=== PATIENT | female | born 1965 | race Caucasian/White ===

== ENCOUNTER 2018-08-09 19:11 | Emergency (ER) | payer BC ==
[2018-08-09] MEDS ORDERED: LIDOCAINE 1% 20 ML MDV ONE (20:37)
--- NOTE | 2018-08-09 20:54 | ER ---
Nurse's Notes [facility] Name: Cindi Welsh Age: 53 yrs Sex: Female : 1965 Arrival Date: 08/09/2018 Time: 19:15 Bed 23 Private MD: Diagnosis: Laceration without foreign body, right lower leg Presentation: 08/09 19:18 Presenting complaint: Patient states: "I was chopping onions and I dropped the knife aj1 and it fell and cut my leg" Laceration noted to right knee that is superficial, not bleeding at this time. Transition of care: patient was not received from another setting of care. Complicating Factors: There are no complicating factors for this patient. Onset of symptoms was August 09, 2018 at 18:30. Risk Assessment: Do you want to hurt yourself or someone else? Patient reports no desire to harm self or others. Initial Sepsis Screen: Does the patient meet any 2 criteria? Yes Does the patient have a suspected source of infection? No. Patient's initial sepsis screen is negative. Care prior to arrival: None. 19:18 Method Of Arrival: Wheelchair aj1 19:18 Acuity: GUILLERMO 4 aj1 Triage Assessment: 19:19 General: Appears in no apparent distress. comfortable, Behavior is calm, cooperative, aj1 appropriate for age. Pain: Complains of pain in right knee Pain currently is 4 out of 10 on a pain scale. Neuro: Level of Consciousness is awake, alert, obeys commands. Cardiovascular: Patient's skin is warm and dry. Respiratory: Airway is patent Respiratory effort is even, unlabored, Respiratory pattern is. Injury Description: Laceration sustained to right knee is superficial, not bleeding. 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 - Social history:: Smoking status: Patient/guardian denies using tobacco. - Ebola Screening: : Patient denies travel to an Ebola-affected area in the 21 days before illness onset. Screenin:06 Abuse screen: Denies threats or abuse. Denies injuries from another. Nutritional aj screening: No deficits noted. Tuberculosis screening: No symptoms or risk factors identified. Fall Risk None identified. Assessment: 21:06 General: Appears in no apparent distress. comfortable, Behavior is calm, cooperative, aj appropriate for age. Pain: Complains of pain in right leg. Neuro: Level of Consciousness is awake, alert, obeys commands, Oriented to person, place, time, situation. Respiratory: Airway is patent Respiratory effort is even, unlabored, Respiratory pattern is regular, symmetrical. Derm: Skin is intact, is healthy with good turgor, Skin is pink, warm \\T\\ dry. normal. Musculoskeletal: Reports. Injury Description: Laceration sustained to right knee is 0.5 to 2.5 cm long, not bleeding, was sustained 30-60 minutes ago. Vital Signs: 19:19 BP 134 / 68; Pulse 98; Resp 18; Temp 97.0; Pulse Ox 100% on R/A; Weight 63.5 kg (R); aj1 Height 5 ft. 3 in. (160.02 cm) (R); 19:19 Body Mass Index 24.80 (63.50 kg, 160.02 cm) aj1 ED Course: 19:15 Patient arrived in ED. es 19:18 Triage completed. aj1 19:19 Arm band placed on Patient placed in waiting room, Patient notified of wait time. aj1 20:06 Bishnu Weinberg PA is PHCP. jr8 20:06 Kishor Nazario MD is Attending Physician. jr8 20:10 Merlnie Toure, RN is Primary Nurse. aj 21:06 Patient has correct armband on for positive identification. aj 21:06 Assist provider with laceration repair on right knee that was 2.5 cm. or less using aj sutures. Set up tray. Performed by Merline Toure RN Dressed with band aid, Patient tolerated well. Patient did not have IV access during this emergency room visit. Administered Medications: 20:57 Drug: Tetanus-Diphtheria Toxoid Adult 0.5 ml {Mixing Pan Tender: [employer]. Exp: aj 04/19/2020. Lot #: [id number]. } Route: IM; Site: right deltoid; 21:19 Follow up: Response: No adverse reaction aj Outcome: 20:53 Discharge ordered by . jr8 21:18 Discharged to home ambulatory. aj 21:18 Condition: good 21:18 Discharge instructions given to patient, family, Instructed on discharge instructions, follow up and referral plans. Demonstrated understanding of instructions, follow-up care, medications. 21:19 Patient left the ED. aj Signatures: Mel Salomon RN RN aj1 Merline Toure RN RN aj Grupo, Bishnu Garcia PA PA jr8
--- NOTE | 2018-08-09 20:54 | EDPHYS ---
Physician Documentation [facility] Name: Cindi Welsh Age: 53 yrs Sex: Female : 1965 Arrival Date: 08/09/2018 Time: 19:15 Bed 23 Private MD: ED Physician Kishor Nazario HPI: 08/09 20:51 This 53 yrs old Female presents to ER via Wheelchair with complaints of jr8 Laceration To Leg. 20:51 The patient has a laceration related to: cooking, from a knife, occurred at home, and jr8 there are no complicating factors. The injury was accidental. The laceration(s) is(are) located on the right leg. Onset: The symptoms/episode began/occurred acutely, today. Associated signs and symptoms: The patient has no apparent associated signs or symptoms. The patient has not experienced similar symptoms in the past. The patient has not recently seen a physician. 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 - Social history:: Smoking status: Patient/guardian denies using tobacco. - Ebola Screening: : Patient denies travel to an Ebola-affected area in the 21 days before illness onset. ROS: 20:51 Constitutional: Negative for fever, chills, and weight loss. jr8 20:51 MS/extremity: Positive for laceration, of the right leg. 20:51 All other systems are negative. Exam: 20:51 Eyes: Pupils equal round and reactive to light, extra-ocular motions intact. Lids and jr8 lashes normal. Conjunctiva and sclera are non-icteric and not injected. Cornea within normal limits. Periorbital areas with no swelling, redness, or edema. ENT: Nares patent. No nasal discharge, no septal abnormalities noted. Tympanic membranes are normal and external auditory canals are clear. Oropharynx with no redness, swelling, or masses, exudates, or evidence of obstruction, uvula midline. Mucous membranes moist. Neck: Trachea midline, no thyromegaly or masses palpated, and no cervical lymphadenopathy. Supple, full range of motion without nuchal rigidity, or vertebral point tenderness. No Meningismus. Cardiovascular: Regular rate and rhythm with a normal S1 and S2. No gallops, murmurs, or rubs. Normal PMI, no JVD. No pulse deficits. Respiratory: Lungs have equal breath sounds bilaterally, clear to auscultation and percussion. No rales, rhonchi or wheezes noted. No increased work of breathing, no retractions or nasal flaring. Abdomen/GI: Soft, non-tender, with normal bowel sounds. No distension or tympany. No guarding or rebound. No evidence of tenderness throughout. Back: No spinal tenderness. No costovertebral tenderness. Full range of motion. MS/ Extremity: Pulses equal, no cyanosis. Neurovascular intact. Full, normal range of motion. Neuro: Awake and alert, GCS 15, oriented to person, place, time, and situation. Cranial nerves II-XII grossly intact. Motor strength 5/5 in all extremities. Sensory grossly intact. Cerebellar exam normal. Normal gait. 20:51 Skin: injury, laceration(s), the wound is approximately 3 cm(s), with a depth of .5 cm(s), of the right leg, that can be described as no foreign body, linear, with mild bleeding. Vital Signs: 19:19 BP 134 / 68; Pulse 98; Resp 18; Temp 97.0; Pulse Ox 100% on R/A; Weight 63.5 kg (R); aj1 Height 5 ft. 3 in. (160.02 cm) (R); 19:19 Body Mass Index 24.80 (63.50 kg, 160.02 cm) aj1 Laceration: 20:51 Wound Repair of 3cm ( 1.2in ) subcutaneous laceration to right leg. Distal jr8 neuro/vascular/tendon intact. Anesthesia: Local anesthetic administered with 2 mls of 1% lidocaine. Wound prep: Moderate cleansing with betadine, Wound irrigation with saline, Wound explored extensively. Skin closed with 3 4-0 Prolene using interrupted sutures and sterile technique. Patient tolerated well. MDM: 20:06 Patient medically screened. jr8 20:51 Data reviewed: vital signs, nurses notes, and as a result, I will discharge patient. jr8 Data interpreted: Pulse oximetry: on room air is 100 %. Interpretation: normal. Counseling: I had a detailed discussion with the patient and/or guardian regarding: the historical points, exam findings, and any diagnostic results supporting the discharge/admit diagnosis, the need for outpatient follow up, a family practitioner, to return to the emergency department if symptoms worsen or persist or if there are any questions or concerns that arise at home. Administered Medications: 20:57 Drug: Tetanus-Diphtheria Toxoid Adult 0.5 ml {Pan Cleaner: [employer]. Exp: aj 04/19/2020. Lot #: [id number]. } Route: IM; Site: right deltoid; 21:19 Follow up: Response: No adverse reaction aj Disposition: 08/10 13:58 Co-signature as Attending Physician, Kishor Nazario MD I agree with the assessment and niesha plan of care. Disposition: 08/09/18 20:53 Discharged to Home. Impression: Laceration without foreign body, right lower leg. - Condition is Stable. - Discharge Instructions: Laceration Care, Adult. - Medication Reconciliation Form, Thank You Letter, Antibiotic Education, Prescription Opioid Use form. - Follow up: Private Physician; When: 7 - 10 days; Reason: Wound Recheck, Recheck today's complaints, Continuance of care, Staple/Suture removal, Re-evaluation by your physician. - Problem is new. - Symptoms have improved. Signatures: Mel Salomon RN RN ajMerline Dean RN Kishor Worthy MD MD cha Roszak, Josh, PA PA jr8 Corrections: (The following items were deleted from the chart) 08/09 21:19 20:53 08/09/2018 20:53 Discharged to Home. Impression: Laceration without foreign body, aj right lower leg. Condition is Stable. Forms are Medication Reconciliation Form, Thank You Letter, Antibiotic Education, Prescription Opioid Use. Follow up: Private Physician; When: 7 - 10 days; Reason: Wound Recheck, Recheck today's complaints, Continuance of care, Staple/Suture removal, Re-evaluation by your physician. Problem is new. Symptoms have improved. jr8
[2018-08-09] MEDS ORDERED: TETANUS & DIPHTHERIA TOX,ADULT 0.5 ML VIAL ONE (21:10)
== END 2018-08-09 21:19 | disposition home or self-care (01) ==
LOC: ER 19:11
PROC: 0JQN0ZZ Repair Right Lower Leg Subcutaneous Tissue and Fascia, Open Approach (ICD-10-PCS; principal; 2018-08-09)
DX: S81.811A Laceration without foreign body, right lower leg, initial encounter (principal); W26.0XXA Contact with knife, initial encounter; Y93.G3 Activity, cooking and baking; Y92.000 Kitchen of unspecified non-institutional (private) residence as the place of occurrence of the external cause; Z23 Encounter for immunization; Z88.5 Allergy status to narcotic agent
CPT/HCPCS: 90471; 90714; 99283